=== PATIENT | male | born 1975 | race Hispanic/Latino ===

== ENCOUNTER 2023-12-27 11:22 | Emergency (ER) | payer SELFPAY ==
[2023-12-27 11:28] VITALS: BP 146/82
--- NOTE | 2023-12-27 12:26 | ED.GENMED ---
History of Present Illness
General
Chief Complaint: Cold/Flu/URI Symptoms
Time Seen by Provider: 12/27/23 12:11
History of Present Illness
History of Present Illness:
48-year-old male presents the emergency department for evaluation of cough and tactile fever for the past 7 days. Cough is generally dry, denies any nasal congestion or sore throat. Denies any chest pain or dyspnea. States that he has had
bronchitis numerous times in the past
Past History
Past History
ED Past Medical History: NIDDM (?)
ED Past Surgical History: Tonsilectomy
Patient has exhibited threatening behavior?: No
Social History
Tobacco: Non-smoker
Alcohol: None
Drug: None
Personal:
Living: with family
Employment: Employed
Family History
Family History: Diabetes
Review of Systems
Review of Systems
Allergies reviewed?: Yes
All Other Systems: ROS reviewed and negative except as documented in HPI and ROS
Phy Exam
Physical Exam
Physical Exam:
GEN: Well appearing, NAD, WDWN
HEENT: Oral mucosa moist, no scleral icterus
Cardiac: Regular rate and rhythm, no murmurs
Lung: No respiratory distress, no tachypnea, faint bibasilar crackles, upper airway harrison clear
MSK: No gross deformity or injuries
Skin: Good color, no pallor or jaundice, no rashes
Neuro: AO x3, moves all extremities freely
Psych: Calm, cooperative
Course
Vital Signs
Initial and Last Documented VS:
Initial Vital Signs
Temp Pulse Resp BP Pulse Ox
98.8 F 104 17 146/82 95
12/27/23 11:28 12/27/23 11:28 12/27/23 11:28 12/27/23 11:28 12/27/23 11:28
Last Documented Vital Signs
Temp Pulse Resp BP Pulse Ox
98.8 F 104 17 146/82 95
12/27/23 11:28 12/27/23 11:28 12/27/23 11:28 12/27/23 11:28 12/27/23 11:28
MDM/Problems Addressed
MDM/Problems Addressed:
Patient with faint bibasilar crackles, likely atypical pneumonia as this has been circulating throughout the community, will cover with azithromycin, do not see any indication for labs or chest x-ray as he has not hypoxic as this would not likely
change management expert plan
*Critical Care Note
Total Time (30-74mins, 75-104mins- exclusive of procedures): Not Applicable
ED Attending Note
-
Portions of this chart may have been created with voice recognition software.� Occasional wrong word or��sound alike� substitutions may have occurred due to the inherent limitations of voice recognition software.
Discharge Plan
Departure
Patient Disposition: Home (Routine Discharge)
Date of Disposition: 12/27/23
Time of Disposition: 12:26
Patient with high blood pressure during this ER visit?: No
Discharge Problem:
Atypical pneumonia
Instructions: Pneumonia, Adult (DC)
Prescriptions:
New
azithromycin [Zithromax] 250 mg tablet
250 mg PO DAILY Qty: 6 0RF
Rx Instructions:
500mg PO on day 1 then 250mg PO qd x 4d
No Action
acetaminophen 325 MG tablet
650 mg PO Q4HPRN PRN (Reason: fever >/= 100.4F, CHINCHILLA,mild pain) 0RF
ascorbic acid (vitamin C) [Vitamin C] 500 MG tablet
1,000 mg PO BID Qty: 14 0RF
benzonatate 100 MG capsule
100 mg PO TIDPRN PRN (Reason: cough) Qty: 15 0RF
dexamethasone 2 MG tablet
6 mg PO DAILY Qty: 7 0RF
zinc sulfate 220 MG capsule
220 mg PO DAILY Qty: 7 0RF
cholecalciferol (vitamin D3) 2,000 UNITS tablet
2,000 units PO DAILY Qty: 14 0RF
guaifenesin [Mucus Relief ER] 600 MG tablet extended release 12hr
600 mg PO Q12 Qty: 14 0RF
albuterol sulfate [Proventil HFA] 90 MCG/PUFF HFA aerosol inhaler
1 puff inhalation Q4HPRN PRN (Reason: shortness of breath) Qty: 1 0RF
benzonatate 100 MG capsule
100 mg PO TIDPRN PRN (Reason: cough) Qty: 20 0RF
prednisone 20 mg tablet
40 mg PO DAILY Qty: 8 0RF
potassium chloride 20 mEq tablet,ER particles/crystals
20 meq PO BID Qty: 10 0RF
rdfauwbdfowi-ueqjrpyta-orgiahd 6.25-5-10 mg/5 mL syrup
5 ml PO Q6H PRN (Reason: cough) Qty: 118 0RF
doxycycline hyclate 100 mg capsule
100 mg PO BID 7 Days Qty: 14 0RF
Referrals:
UNKNOWN - PT DOES,NOT KNOW [Family Provider] -
Interventions
Interventions:
*Nursing Disposition Last Done: 12/27/23 12:47
Discharge Date and Time
Discharge Date/Time: 12/27/23 12:48
Print Language: WELSH
== END 2023-12-27 12:48 | disposition home or self-care (01) ==
LOC: EMR 11:22
PROVIDERS: EMERGENCY PHYSICIAN Emergency Medicine
DX: J18.9 Pneumonia, unspecified organism (principal)
CPT/HCPCS: 99283

== ENCOUNTER 2024-05-15 12:13 | Emergency (ER) | payer SELFPAY ==
[2024-05-15 12:16] VITALS: BP 169/88
--- NOTE | 2024-05-15 13:17 | ED.GENMED ---
History of Present Illness
General
Chief Complaint: Blood Pressure Problem
Source: patient
Exam Limitations: none
Time Seen by Provider: 05/15/24 13:05
Nursing documentation reviewed up to this point in time: agreed with
History of Present Illness
History of Present Illness:
49-year-old male with history of NIDDM, HTN, states for the past 10 days he has had a cough, no known sick contacts. He denies fever but has had body aches. He denies N/V/D/C. His appetite has been good. He does say his cough is productive
Past History
Past History
ED Past Medical History: NIDDM (?)
ED Past Surgical History: Tonsilectomy
Patient has exhibited threatening behavior?: No
Social History
Tobacco: Non-smoker
Alcohol: None
Drug: None
Personal:
Living: with family
Employment: Employed
Family History
Family History: Diabetes
Review of Systems
Review of Systems
Allergies reviewed?: Yes
All Other Systems: ROS reviewed and negative except as documented in HPI and ROS
Constitutional: Denies fever
EENT: Denies sore throat
Respiratory: Reports cough; Denies trouble breathing
Cardiac: Reports chest pain (from coughing)
ABD/GI: Denies abdominal pain, nausea, vomiting, diarrhea or constipated
Musculoskeletal: Reports other (general body aches)
Skin: Reports no symptoms
Neurological: Reports headache (mild); Denies weakness or numbness
Phy Exam
Physical Exam
Physical Exam:
GENERAL: No acute distress. A&Ox3.
CONSTITUTIONAL: Afebrile.
EYES: clear, conjunctivae normal
ENMT: moist mucus membranes, Pharynx nl
RESPIRATORY: Regular respirations, nonlabored, lungs clear.
CARDIOVASCULAR: Regular rate and rhythm, no murmurs, no rubs.
GI: Soft, nontender, normal BS
MUSCULOSKELETAL: Moves with ease. Well perfused.
SKIN: Warm, dry, pink
PSYCH: Normal mood and affect. Well kept, interactive and appropriate
NEUROLOGIC: Awake, alert and oriented. No focal neurological deficits
Course
Orders/Labs/Results
Orders:
Orders
05/15/24 12:21
Electrocardiogram (*1) Urgent
Reason for Study: Chest Pain
EKG- Treatment ONCE
05/15/24 13:16
CR Chest - 2 Views Urgent
Comment:
Reason For Exam: cough
05/15/24 13:24
COVID-19 Antigen Urgent
Source: Nasal Swab
Influenza A+B Rapid Molecular Urgent
[facility] Source: Nasal Swab
Specimen Description:
Vital Signs
Initial and Last Documented VS:
Initial Vital Signs
Temp Pulse Resp BP Pulse Ox
98.5 F 85 18 169/88 100
05/15/24 12:16 05/15/24 12:16 05/15/24 12:16 05/15/24 12:16 05/15/24 12:16
Last Documented Vital Signs
Temp Pulse Resp BP Pulse Ox
98.5 F 69 24 146/92 97
05/15/24 12:16 05/15/24 14:00 05/15/24 14:00 05/15/24 16:00 05/15/24 16:00
MDM/Problems Addressed
Differential Diagnosis Includes:
viral uri, flu, Covid, PNA
MDM/Problems Addressed:
49-year-old male with history of NIDDM, HTN, states for the past 10 days he has had a cough, denies wheezing, no known sick contacts. He denies fever but has had body aches. He denies N/V/D/C. His appetite has been good. He does say his cough is
productive
Afebrile, NAD, not ill appearing, mildly stuffy nasal voice, no significant cough noted.
Lungs CTA
EKG NSR
Covid negative
CXR: NAD
F/U: Pt has application in to [facility] and waiting to hear.
This is most likely viral URI
No indication for antibiotics at this time.
Chronic conditions affecting care: DM and HTN
*Critical Care Note
Total Time (30-74mins, 75-104mins- exclusive of procedures): Not Applicable
ED Attending Note
-
Portions of this chart may have been created with voice recognition software.� Occasional wrong word or��sound alike� substitutions may have occurred due to the inherent limitations of voice recognition software.
Discharge Plan
Departure
Patient Disposition: Home (Routine Discharge)
Date of Disposition: 05/15/24
Time of Disposition: 15:50
Patient with high blood pressure during this ER visit?: No
Condition: Good
Covid-19: Negative COVID-19
Discharge Problem:
Upper respiratory infection, viral
Instructions: Upper respiratory infection in adults - Discharge instructions, Cough in adults - ED discharge instructions
Prescriptions:
No Action
acetaminophen 325 MG tablet
650 mg PO Q4HPRN PRN (Reason: fever >/= 100.4F, CHINCHILLA,mild pain) 0RF
ascorbic acid (vitamin C) [Vitamin C] 500 MG tablet
1,000 mg PO BID Qty: 14 0RF
benzonatate 100 MG capsule
100 mg PO TIDPRN PRN (Reason: cough) Qty: 15 0RF
dexamethasone 2 MG tablet
6 mg PO DAILY Qty: 7 0RF
zinc sulfate 220 MG capsule
220 mg PO DAILY Qty: 7 0RF
cholecalciferol (vitamin D3) 2,000 UNITS tablet
2,000 units PO DAILY Qty: 14 0RF
guaifenesin [Mucus Relief ER] 600 MG tablet extended release 12hr
600 mg PO Q12 Qty: 14 0RF
albuterol sulfate [Proventil HFA] 90 MCG/PUFF HFA aerosol inhaler
1 puff inhalation Q4HPRN PRN (Reason: shortness of breath) Qty: 1 0RF
benzonatate 100 MG capsule
100 mg PO TIDPRN PRN (Reason: cough) Qty: 20 0RF
prednisone 20 mg tablet
40 mg PO DAILY Qty: 8 0RF
potassium chloride 20 mEq tablet,ER particles/crystals
20 meq PO BID Qty: 10 0RF
bcpjcuynhjzu-gsvvcusxn-tfxojtc 6.25-5-10 mg/5 mL syrup
5 ml PO Q6H PRN (Reason: cough) Qty: 118 0RF
doxycycline hyclate 100 mg capsule
100 mg PO BID 7 Days Qty: 14 0RF
azithromycin [Zithromax] 250 mg tablet
250 mg PO DAILY Qty: 6 0RF
Rx Instructions:
500mg PO on day 1 then 250mg PO qd x 4d
Referrals:
[facility] [Other] - As needed
UNKNOWN - PT DOES,NOT KNOW [Family Provider] -
Activity Restrictions/Additional Instructions:
As we discussed, no sign of pneumonia, your Covid and Flu tests are negative.
This is a viral upper respiratory infection and should simply run it's course and get better on it's own.
Try Robitussin, Romero's menthol cough drops for the cough.
Cough this year is very prevalent and sometimes lasts for weeks or even 1-2 months.
Interventions
Interventions:
*Risk Screen - Suicide Last Done: 05/15/24 12:16
*General Assessment Last Done: 05/15/24 12:16
*Neglect/Abuse Screening Last Done: 05/15/24 12:16
ED- Fall Risk Assessment Last Done: 05/15/24 16:10
*ED COVID-19 Vaccine History Last Done: 05/15/24 12:16
*Nursing Disposition Last Done: 05/15/24 16:10
ED- Cardiac Assessment Last Done: 05/15/24 15:33
ED- Neurological Assessment Last Done: 05/15/24 15:33
ED- Pulmonary Assessment Last Done: 05/15/24 15:33
Discharge Date and Time
Discharge Date/Time: 05/15/24 16:10
Print Language: CYMRAES
[2024-05-15 13:48] LABS: COVID-19 Antigen Negative (Negative)
[2024-05-15 14:00] VITALS: BP 135/69
[2024-05-15 15:27] VITALS: BP 128/73
[2024-05-15 16:00] VITALS: BP 146/92
== END 2024-05-15 16:10 | disposition home or self-care (01) ==
LOC: EMR 12:13
PROVIDERS: Registered Nurse; EMERGENCY PHYSICIAN Emergency Medicine
DX: J06.9 Acute upper respiratory infection, unspecified (principal); B97.89 Other viral agents as the cause of diseases classified elsewhere; E11.9 Type 2 diabetes mellitus without complications; I10 Essential (primary) hypertension
CPT/HCPCS: 99285; 71046; 87502; 87811; 93005

== ENCOUNTER 2024-12-26 15:23 | Emergency (ER) | payer SELFPAY ==
[2024-12-26 15:25] VITALS: BP 146/86
[2024-12-26 16:06] LABS: COVID-19 Antigen Negative (Negative)
--- NOTE | 2024-12-26 18:56 | ED.GENMED ---
History of Present Illness
General
Chief Complaint: Cold/Flu/URI Symptoms
Source: patient
Time Seen by Provider: 12/26/24 18:49
History of Present Illness
History of Present Illness:
49-year-old male presents to the emergency room complaining of cough, nasal congestion, chest tightness. Symptoms have been present for the past 3 days. He took Motrin which did help his symptoms some but not the cough. He does not feel short of
breath. Patient has had bronchitis in the past. He notes albuterol helped him in the past.
Past History
Past History
ED Past Medical History: NIDDM (?)
ED Past Surgical History: Tonsilectomy
Patient has exhibited threatening behavior?: No
Social History
Tobacco: Non-smoker
Alcohol: None
Drug: None
Personal:
Living: with family
Employment: Employed
Family History
Family History: Diabetes
Phy Exam
Physical Exam
Physical Exam:
General: Awake, Alert, Oriented X3. No acute distress.
Vitals: unremarkable
Head: Atraumatic
Eyes: Pupils equal, EOMI
Throat: Airway intact, no exudates
Neck: Trachea midline
Lungs: Decreased breath sounds bilaterally
Heart: Regular rate, no murmurs
Abd: Soft, Nontender, No pulsatile mass
Neuro: Nonfocal
Skin: Warm, dry, no rash
Extremities: pulses equal b/l, no edema
Course
Orders/Labs/Results
Orders:
Orders
12/26/24 15:27
CR Chest - 2 Views Urgent
Comment:
Reason For Exam: cough
12/26/24 15:31
COVID-19 Antigen Urgent
Source: Nasal Swab
Influenza A+B Rapid Molecular Urgent
ELHAM Source: Nasal Swab
Specimen Description:
Vital Signs
Initial and Last Documented VS:
Initial Vital Signs
Temp Pulse Resp BP Pulse Ox
99.1 F 98 16 146/86 95
12/26/24 15:25 12/26/24 15:25 12/26/24 15:25 12/26/24 15:25 12/26/24 15:25
Last Documented Vital Signs
Temp Pulse Resp BP Pulse Ox
99.1 F 98 16 146/86 95
12/26/24 15:25 12/26/24 15:25 12/26/24 15:25 12/26/24 15:25 12/26/24 15:25
MDM/Problems Addressed
Differential Diagnosis Includes:
Viral bronchitis, bronchitis, pneumonia, COVID
MDM/Problems Addressed:
Patient presents with URI type symptoms. Chest x-ray is unremarkable. COVID test is negative. Symptoms of only been present for 3 days so very likely viral. Will treat with albuterol and Tessalon to help him symptomatically. Also recommend he
continues take ibuprofen every 6 hours.
Chronic conditions affecting care: HTN
*Radiology
Radiology exam reviewed: preliminary read by ED provider (No acute abnormalities on my review of the patient's chest x-ray)
*Pulse Oximetry
SaO2: 95
Oxygen Mode of Delivery: Room air
Patient hypoxic: no
*Critical Care Note
Total Time (30-74mins, 75-104mins- exclusive of procedures): Not Applicable
ED Attending Note
-
Portions of this chart may have been created with voice recognition software.� Occasional wrong word or��sound alike� substitutions may have occurred due to the inherent limitations of voice recognition software.
Discharge Plan
Departure
Patient Disposition: Home (Routine Discharge)
Date of Disposition: 12/26/24
Time of Disposition: 18:59
Patient with high blood pressure during this ER visit?: Yes
Condition: Good
Discharge Problem:
Acute upper respiratory infection, unspecified
Instructions: Viral Upper Respiratory Infection, Adult (DC), BLOOD PRESSURE
Prescriptions:
New
albuterol sulfate [Ventolin HFA] 90 mcg/actuation HFA aerosol inhaler
2 puff inhalation Q6H PRN (Reason: shortness of breath or wheezing) Qty: 6.7 0RF
benzonatate 100 mg capsule
100 mg PO TID PRN (Reason: Cough) Qty: 20 0RF
No Action
acetaminophen 325 MG tablet
650 mg PO Q4HPRN PRN (Reason: fever >/= 100.4F, CHINCHILLA,mild pain) 0RF
ascorbic acid (vitamin C) [Vitamin C] 500 MG tablet
1,000 mg PO BID Qty: 14 0RF
benzonatate 100 MG capsule
100 mg PO TIDPRN PRN (Reason: cough) Qty: 15 0RF
dexamethasone 2 MG tablet
6 mg PO DAILY Qty: 7 0RF
zinc sulfate 220 MG capsule
220 mg PO DAILY Qty: 7 0RF
cholecalciferol (vitamin D3) 2,000 UNITS tablet
2,000 units PO DAILY Qty: 14 0RF
guaifenesin [Mucus Relief ER] 600 MG tablet extended release 12hr
600 mg PO Q12 Qty: 14 0RF
albuterol sulfate [Proventil HFA] 90 MCG/PUFF HFA aerosol inhaler
1 puff inhalation Q4HPRN PRN (Reason: shortness of breath) Qty: 1 0RF
benzonatate 100 MG capsule
100 mg PO TIDPRN PRN (Reason: cough) Qty: 20 0RF
prednisone 20 mg tablet
40 mg PO DAILY Qty: 8 0RF
potassium chloride 20 mEq tablet,ER particles/crystals
20 meq PO BID Qty: 10 0RF
xzhrsegwhmbp-ngkyufvqu-aknonuz 6.25-5-10 mg/5 mL syrup
5 ml PO Q6H PRN (Reason: cough) Qty: 118 0RF
doxycycline hyclate 100 mg capsule
100 mg PO BID 7 Days Qty: 14 0RF
azithromycin [Zithromax] 250 mg tablet
250 mg PO DAILY Qty: 6 0RF
Rx Instructions:
500mg PO on day 1 then 250mg PO qd x 4d
Discharge Date and Time
Print Language: BRUNEIAN
[2024-12-26 18:58] VITALS: BMI 39.0
[2024-12-26] MEDS: TYLENOL 1000 MG PO (19:05)
[2024-12-26 19:14] VITALS: BP 133/80
== END 2024-12-26 19:18 | disposition home or self-care (01) ==
LOC: EMR 15:23
PROVIDERS: Emergency Medicine; EMERGENCY PHYSICIAN Emergency Medicine
DX: J06.9 Acute upper respiratory infection, unspecified (principal); I10 Essential (primary) hypertension
CPT/HCPCS: 99284; 71046; 87502; 87811